=== PATIENT | male | born 1995 | race Caucasian/White ===

== ENCOUNTER 2017-05-13 06:32 | Day surgery (SDC) | payer OTHER ==
[2017-05-13] MEDS ORDERED: Ketorolac Tromethamine 30 MG/ML VIAL ONE (06:41)
[2017-05-13] MEDS ORDERED: Bupivacaine 0.25% HCL 30 ML VIAL ONE (06:44)
[2017-05-13] MEDS ORDERED: Lidocaine 2% w/Epinephrine 1:200K 20 ML VIAL ONE (06:44)
[2017-05-13] MEDS ORDERED: Fentanyl 100 MCG/2 ML VIAL ONE (06:50)
[2017-05-13] MEDS ORDERED: Midazolam HCl 2 mg/2 ml Vial ONE (07:12)
--- NOTE | 2017-05-13 07:13 | HP ---
HISTORY OF PRESENT ILLNESS: Mr. Vito Mcgrath is a 21-year-old [employer] student presents with a 36-hour history of right lower quadrant discomfort. He has been recovering well from what he thinks is the flu, although never diagnosed. He had URI. He developed pain and pressure sensation in his right lo wer quadrant and increased pain with movement and decreased appetite. He has had an elevated tempera ture in the last 36 hours. He presented to the [facility] emergency room where he underwent evaluatio n, CAT scan documenting appendicitis. He was evaluated by Dr. Jesús Llanos. He received Zosyn last night and another dose at 6:00 this morning. Liver function tests are normal. LABORATORY DATA: White count 11, hemoglobin 15.6, sodium 140, potassium 4.3, BUN 26, creatinine 0.9. ALLERGIES: None. TOBACCO: None. ALCOHOL: Rarely. MEDICATIONS: None routinely. PAST SURGICAL HISTORY: As a child, bilateral tube myringotomies. PAST MEDICAL HISTORY: Noncontributory. REVIEW OF SYSTEMS: Ten point noncontributory except as noted above. PHYSICAL EXAMINATION: VITAL SIGNS: Temperature 99.3 degrees, heart rate 89, blood pressure 174/99. HEENT: Unremarkable. LUNGS: Clear to auscultation. CARDIAC: Regular rate and rhythm without murmur or gallop. ABDOMEN: Soft, except in the right lower quadrant with guarding and rebound. EXTREMITIES: Unremarkable. NEUROLOGIC: Intact. No lymphadenopathy in cervical, axillary, and groins. SKIN: Normal. ASSESSMENT AND PLAN: Acute appendicitis. Recommended laparoscopic video appendectomy. Risk of infe ction, bleeding, visceral injury, open procedure were discussed. Questions answered.
--- NOTE | 2017-05-13 10:58 | OP ---
DATE OF PROCEDURE: 05/13/2017 PREOPERATIVE DIAGNOSIS: Acute appendicitis. POSTOPERATIVE DIAGNOSIS: Acute appendicitis. PROCEDURE: Laparoscopic video appendectomy. SURGEON: Adi Pena M.D. ANESTHESIA: General. Local 0.25% Marcaine with epinephrine, 30 mL, mixed with 2% Xylocaine, 20 mL t otal mixture used. PROCEDURE: The patient was taken to the operating room where under general anesthesia, abdomen was c lipped of hair, Decker catheter placed at the beginning of the procedure and removed at the end. Abdo men prepared with ChloraPrep, draped in routine fashion. Local anesthetic mixture infiltrated into s kin and subcutaneous tissue about each port site. Infraumbilical incision made and pneumoperitoneum to 15 mmHg obtained with the Veress needle, replacing it with a 5 port. Video laparoscope inserted. Right lateral subcostal incision made and a [address] Suprapubic incision made and a [address] a[address]. Appendix was acutely inflamed, mesoappendix divided with the LigaSure. The stump of the appen wojciech, dividing the stump of the appendix cecal stump with Endo-PATITO blue load stapler. Appendix placed in Endobag and removed. Suprapubic incision which was closed by approximating the fascia with 0 Nacho ryl on GraNee needle, cecal stump was hemostatic and secure as the appendix was removed and submitted to pathology. Irrigant and pneumoperitoneum evacuated. All instruments removed and all skin incisi ons approximated with interrupted subdermal 4-0 Monocryl and DermaGlue applied.
[2017-05-13] MEDS ORDERED: Ondansetron HCl/PF 4 MG/2 ML Vial ONE (14:00)
[2017-05-13] MEDS ORDERED: Glycopyrrolate 0.2 MG/ML 5 ML SYRINGE ONE (14:00)
[2017-05-13] MEDS ORDERED: PROPOFOL 200 MG/20 ML VIAL ONE (14:00)
[2017-05-13] MEDS ORDERED: Dexamethasone 20 MG/5 ML VIAL ONE (14:00)
[2017-05-13] MEDS ORDERED: Succinylcholine Chloride 20 MG/ML 10 ml SYRINGE FS ONE (14:00)
[2017-05-13] MEDS ORDERED: Lidocaine 1% PF 5 ML VIAL ONE (14:00)
== END 2017-05-13 17:05 | disposition home or self-care (01) ==
LOC: SDC/OP 06:32
PROVIDERS: ATTEND Specialist
PROC: 0DTJ4ZZ Resection of Appendix, Percutaneous Endoscopic Approach (ICD-10-PCS; principal; 2017-05-13)
DX: K35.3 Acute appendicitis with localized peritonitis (principal); E66.9 Obesity, unspecified; Z68.30 Body mass index [BMI] 30.0-30.9, adult; Z98.890 Other specified postprocedural states
CPT/HCPCS: 88304; J0131; J1100; J1885; J2001; J2250; J2405; J2704; J3010; S0020